=== PATIENT | male | born 1985 | race Caucasian/White ===

== ENCOUNTER 2022-01-22 06:16 | Emergency (ER) | payer OTHER ==
[2022-01-22] MEDS ORDERED: FLUORESCEIN STRIPS 1 MG STRIP LEFT EYE ONE (06:28)
[2022-01-22] MEDS ORDERED: PROPARACAINE 0.5% OPHTH DROPS 15 ML BTL LEFT EYE STA (06:28)
--- NOTE | 2022-01-22 06:33 | ED ---
Eye Problem HPI - General Chief complaint: Eye Problems Stated complaint: Eye Problem Time Seen by Provider: 01/22/22 06:24 Source: patient, RN notes reviewed, old records reviewed Mode of arrival: ambulatory Limitations: no limitations - History of Present Illness Initial comments: Well-appearing 36-year-old male presents ambulatory with complaints of pain to left eye. Patient states that he was grinding metal and when he got home he took his shirt off around 1600 yesterday and believes he got a metal fragment in his eye. He states that he did remove a piece of debris however continues to have pain. States his tetanus shot is up-to-date. No medical history. Does not wear glasses or contact lenses. MD chief complaint: eye pain, eye redness, foreign body -: hour(s) (15) Onset Description: sudden Location: left eye Eye Symptoms: burning, redness, pain, blurry vision Severity scale (1-10): 6 Consistency: constant Associated Symptoms: none Treatments Prior to Arrival: other (removed foreign body) - Related Data Patient Tetanus UTD: Yes Previous Rx's Medication Instructions Recorded Polymyxin B-Trimeth Sulf Ophth 1 drops LEFT EYE Q4H 5 Days #10 ml 01/22/22 [Polytrim Opthalmic] Allergies Allergy/AdvReac Type Severity Reaction Status Date / Time amoxicillin Allergy Anaphylaxis Verified 01/22/22 06:19 Penicillins Allergy Anaphylaxis Verified 01/22/22 06:19 Review of Systems ROS Statement: Those systems with pertinent positive or pertinent negative responses have been documented in the HPI. ROS Other: All systems not noted in ROS Statement are negative. Past Medical History Past Medical History: No Reported History History of Any Multi-Drug Resistant Organisms: None Reported Additional Past Surgical History / Comment(s): L leg tendon repair Past Psychological History: No Psychological Hx Reported Smoking Status: Current every day smoker Past Alcohol Use History: Occasional Past Drug Use History: Marijuana General Exam Limitations: no limitations General appearance: alert, in no apparent distress Head exam: Present: atraumatic Eye exam: Present: PERRL, EOMI, conjunctival injection. Absent: scleral icterus, nystagmus, periorbital swelling, periorbital tenderness Pupils: Present: normal accommodation Expanded Eyelids: Normal Inspection: Bilateral Pupils: Regular, Round: Bilateral Sclera/Conjunctival: Normal Inspection: Right, Injection: Left, Foreign Body: Left Anterior chamber: Normal Inspection: Bilateral ENT exam: Present: mucous membranes moist Neck exam: Absent: meningismus Respiratory exam: Absent: respiratory distress, accessory muscle use Cardiovascular Exam: Present: regular rate Neurological exam: Present: alert, oriented X3, normal gait Psychiatric exam: Present: normal affect, normal mood Skin exam: Present: warm, dry, normal color. Absent: cyanosis, diaphoretic Course Vital Signs 01/22/22 06:19 Temperature 98 F Pulse Rate 68 Respiratory 18 Rate Blood Pressure 149/85 O2 Sat by Pulse 99 Oximetry Procedures - Forgein Body Removal Eye Site: Left Anesthetic Used: Proparacaine Eye Exam Technique: Fragoso Lamp Foreign Body Suspected: Metal Forgein Body Removal Technique: Cotton Swab Remaining Debris: No (additional foreign body removed by Dr Marroquin) Patient Tolerated: well Medical Decision Making - Medical Decision Making Proparacaine, fluorescein dye and Wood's lamp exam revealed a small foreign body in the lower lid which was removed. No foreign body under upper lid. Negative Jeremiah sign. No hyphema or hypopyon. There was a foreign body over the pupil at 6:00 that I was unable to remove. Dr. Marroquin at bedside successful at removal. Antibiotic drops prescribed. Patient does not wear glasses or contact lenses. Tetanus shot is up-to-date. Patient was instructed to follow-up with ophthalmology today. Disposition Clinical Impression: Corneal abrasion, Foreign body of cornea Disposition: HOME SELF-CARE Condition: Good Instructions (If sedation given, give patient instructions): Corneal Abrasion (ED), Eye Foreign Body (ED) Additional Instructions: Use antibiotic drops as prescribed. Follow-up with ophthalmology today. Prescriptions: Polymyxin B-Trimeth Sulf Ophth [Polytrim Opthalmic] 1 drops LEFT EYE Q4H 5 Days #10 ml Is patient prescribed a controlled substance at d/c from ED?: No Referrals: None,Stated [Primary Care Provider] - 1-2 days Abida Purcell MD [STAFF PHYSICIAN] - 1-2 days Time of Disposition: 07:28
[2022-01-22 07:42] VITALS: BP 144/71; PULSE 77; RESP 16; TEMP 98.2
== END 2022-01-22 07:41 | disposition home or self-care (01) ==
LOC: EC 06:16
DX: T15.02XA Foreign body in cornea, left eye, initial encounter (principal); F12.90 Cannabis use, unspecified, uncomplicated; F17.200 Nicotine dependence, unspecified, uncomplicated; Z88.0 Allergy status to penicillin
CPT/HCPCS: 65222; 99283

== ENCOUNTER → 2022-12-25 | Outpatient (CLI) | payer OTHER ==
--- NOTE | 2022-12-26 08:15 | XR ---
EXAMINATION TYPE: XR ankle complete LT DATE OF EXAM: 12/25/2022 COMPARISON: NONE HISTORY: Pain FINDINGS: Three views of the ankle demonstrate the ankle mortise to be intact and symmetric. The joint spaces are preserved. The osseous structures are intact. IMPRESSION: 1. No definite acute fracture or dislocation, if symptoms persist follow-up study in 7 to 10 days wou ld be suggested.
--- NOTE | 2022-12-26 08:16 | XR ---
EXAMINATION TYPE: XR foot complete LT DATE OF EXAM: 12/25/2022 COMPARISON: NONE HISTORY: Pain TECHNIQUE: Three views are submitted. FINDINGS: The osseous structures are intact. There is no acute fracture or dislocation. Mild hypertrophic ch anges of the first tarsal.. IMPRESSION: 1. No acute fracture or dislocation. If symptoms persist, follow-up exam in 7 to 10 days could be ob tained.
--- NOTE | 2022-12-26 08:17 | XR ---
EXAMINATION TYPE: XR shoulder complete RT DATE OF EXAM: 12/25/2022 COMPARISON: NONE HISTORY: Pain TECHNIQUE: Three views are submitted. FINDINGS: The osseous structures are intact. There is no acute fracture or dislocation. The AC joint is maint ained. IMPRESSION: 1. No acute process.
== END | disposition home or self-care (01) ==
LOC: RADXRMAIN 15:50
PROVIDERS: ATTEND Family Medicine
DX: M79.605 Pain in left leg (principal); M25.511 Pain in right shoulder; M79.672 Pain in left foot

== ENCOUNTER 2024-07-23 14:45 | Emergency (ER) | payer OTHER ==
[2024-07-23 14:58] VITALS: RESP 20
--- NOTE | 2024-07-23 15:32 | ED ---
General Adult HPI - General Chief complaint: Skin/Abscess/Foreign Body Stated complaint: R Leg/Nail Puncture Time Seen by Provider: 07/23/24 15:00 Source: patient, family, RN notes reviewed Mode of arrival: ambulatory Limitations: no limitations - History of Present Illness Initial comments: 38-year-old male presents to the emergency department for nail puncture wound to his right thigh. Patient states that he was mowing the lawn when he ran over a nail. Causing the nail to come up and hit him in the thigh. He notes having multiple layers of pants on. He is unsure when he last had a tetanus vaccine. He is updated on this today. Allergic to penicillins. - Related Data Previous Rx's Medication Instructions Recorded Polymyxin B-Trimeth Sulf Ophth 1 drops LEFT EYE Q4H 5 Days #10 ml 01/22/22 [Polytrim Opthalmic] Clindamycin [Cleocin] 450 mg PO Q8HR #63 capsule 07/23/24 Allergies Allergy/AdvReac Type Severity Reaction Status Date / Time amoxicillin Allergy Anaphylaxis Verified 01/22/22 06:19 Penicillins Allergy Anaphylaxis Verified 01/22/22 06:19 Review of Systems ROS Statement: Those systems with pertinent positive or pertinent negative responses have been documented in the HPI. ROS Other: All systems not noted in ROS Statement are negative. Past Medical History Past Medical History: No Reported History History of Any Multi-Drug Resistant Organisms: None Reported Additional Past Surgical History / Comment(s): L leg tendon repair Past Psychological History: No Psychological Hx Reported Smoking Status: Current every day smoker Past Alcohol Use History: Occasional Past Drug Use History: Marijuana General Exam Limitations: no limitations General appearance: alert, in no apparent distress Head exam: Present: atraumatic, normocephalic, normal inspection Respiratory exam: Present: normal lung sounds bilaterally. Absent: respiratory distress, wheezes, rales, rhonchi, stridor Cardiovascular Exam: Present: regular rate, normal rhythm, normal heart sounds. Absent: systolic murmur, diastolic murmur, rubs, gallop, clicks Extremities exam: Present: normal inspection, full ROM, normal capillary refill. Absent: tenderness, pedal edema, joint swelling, calf tenderness Neurological exam: Present: alert, oriented X3 Psychiatric exam: Present: normal affect, normal mood Skin exam: Present: warm, dry. Absent: intact (Puncture wound to the right thigh) Course Vital Signs 07/23/24 07/23/24 14:56 16:07 Temperature 97.8 F 98 F Pulse Rate 100 97 Respiratory 20 20 Rate Blood Pressure 128/90 126/86 O2 Sat by Pulse 98 99 Oximetry Medical Decision Making - Medical Decision Making Was pt. sent in by a medical professional or institution (, PA, PAINTER ORDNANCE, urgent care, hospital, or correction...) When possible be specific @ -No Did you speak to anyone other than the patient for history (EMS, parent, family, police, friend...)? What history was obtained from this source @ -No Did you review nursing and triage notes (agree or disagree)? Why? @ -I reviewed and agree with nursing and triage notes Were old charts reviewed (outside hosp., previous admission, EMS record, old EKG, old radiological studies, urgent care reports/EKG's, correction records)? Report findings @ -No old charts were reviewed Differential Diagnosis (chest pain, altered mental status, abdominal pain women, abdominal pain men, vaginal bleeding, weakness, fever, dyspnea, syncope, headache, dizziness, GI bleed, back pain, seizure, CVA, palpatations, mental health, musculoskeletal)? @ -Differential Musculoskeletal Muscular strain, contusion, ligament sprain, fracture, arthritis, septic arthritis, bursitis, cellulitis, muscle spasm, nerve compression, DVT, arterial occlusion, herpes zoster, electrolyte abnormality, tumor.... This is not meant to be in all inclusive list EKG interpreted by me (3pts min.). @ -None X-rays interpreted by me (1pt min.). @ -None done CT interpreted by me (1pt min.). @ -None done U/S interpreted by me (1pt. min.). @ -None done What testing was considered but not performed or refused? (CT, X-rays, U/S, labs)? Why? @ -None What meds were considered but not given or refused? Why? @ -None Did you discuss the management of the patient with other professionals (professionals i.e. , [facility], PAINTER [employer]DNANCE, lab, RT, psych nurse, psychiatric social worker supervisor, director marketing analytics, teacher, chief green officer, telephonic nurse case manager)? Give summary @ -No Was smoking cessation discussed for >3mins.? @ -No Was critical care preformed (if so, how long)? @ -No Were there social determinants of health that impacted care today? How? (Homelessness, low income, unemployed, alcoholism, drug addiction, transportation, low edu. Level, literacy, decrease access to med. care, prison, rehab)? @ -No Was there de-escalation of care discussed even if they declined (Discuss DNR or withdrawal of care, Hospice)? DNR status @ -No What co-morbidities impacted this encounter? (DM, HTN, Smoking, COPD, CAD, Cancer, CVA, ARF, Chemo, Hep., AIDS, mental health diagnosis, sleep apnea, morbid obesity)? @ -None Was patient admitted / discharged? Hospital course, mention meds given and route, prescriptions, significant lab abnormalities, going to OR and other pertinent info. @ -Discharge. Patient presented the emergency department for puncture wound to the right thigh. Patient updated on tetanus vaccine. Wound cleaned. Patient started on antibiotics prophylactically. He is understanding agreeable to plan. Patient stable at time of discharge. Case discussed with Dr. Christian. Undiagnosed new problem with uncertain prognosis? @ -No Drug Therapy requiring intensive monitoring for toxicity (Heparin, Nitro, Insulin, Cardizem)? @ -No Were any procedures done? @ -No Diagnosis/symptom? @ -Puncture wound Acute, or Chronic, or Acute on Chronic? @ -Acute Uncomplicated (without systemic symptoms) or Complicated (systemic symptoms)? @ -Uncomplicated Side effects of treatment? @ -No Exacerbation, Progression, or Severe Exacerbation? @ -No Poses a threat to life or bodily function? How? (Chest pain, [place], [place], pneumonia, PE, COPD, DKA, ARF, appy, cholecystitis, CVA, Diverticulitis, Homicidal, Suicidal, threat to staff... and all critical care pts) @ -No Disposition Clinical Impression: Puncture wound of thigh Disposition: HOME SELF-CARE Condition: Stable Instructions (If sedation given, give patient instructions): Puncture Wound (ED) Additional Instructions: Please pickle pumper antibiotics and take to completion. Follow up with your primary care provider. Return to the emergency department for new or worsening symptoms. Prescriptions: Clindamycin [Cleocin] 450 mg PO Q8HR #63 capsule Is patient prescribed a controlled substance at d/c from ED?: No Referrals: Oliverio Malik MD [Primary Care Provider] - 1-2 days
[2024-07-23] MEDS: DIPH,PERTUS(ACELL)TETVAC-LF 0.5 ML VIAL IM ONE (15:35)
[2024-07-23] MEDS: CLINDAMYCIN 150 MG CAP PO STA (16:03)
[2024-07-23 16:12] VITALS: BP 126/86; PULSE 97; TEMP 98
== END 2024-07-23 16:09 | disposition home or self-care (01) ==
LOC: EC 14:45
DX: S71.131A Puncture wound without foreign body, right thigh, initial encounter (principal); F17.200 Nicotine dependence, unspecified, uncomplicated; Z88.0 Allergy status to penicillin; W45.0XXA Nail entering through skin, initial encounter
CPT/HCPCS: 90471; 90715; 99282

== ENCOUNTER 2024-07-31 23:18 | Emergency (ER) | payer OTHER ==
[2024-07-31 23:35] VITALS: BP 145/103; PULSE 52; RESP 18
--- NOTE | 2024-08-01 00:30 | ED ---
Psych HPI - General Source: police, RN notes reviewed, old records reviewed Mode of arrival: ambulatory Limitations: no limitations - History of Present Illness MD Complaint: suicidal ideation, feels depressed Associated Psychiatric Symptoms: depression, suicidal ideation History of same: Yes Quality: constant, intermittent Improves With: none Worsens With: none Context: significant life stressor Associated Symptoms: denies other symptoms Treatments Prior to Arrival: placed on mental health hold If Self Harm: admits thoughts of self harm <Fidel Jackson - Last Filed: 08/01/24 00:30> <Sanford Amezquita - Last Filed: 08/01/24 03:05> - General Chief Complaint: Psychiatric Symptoms Stated Complaint: LE Petition, Mental Health Time Seen by Provider: 08/01/24 00:00 - History of Present Illness Initial Comments: This is a 38-year-old male to the ER for evaluation patient presents today for evaluation regards to need for psychiatric evaluation patient is petitioned by PD after making suicidal statements to his (Fidel Jackson) - Related Data Previous Rx's Medication Instructions Recorded Polymyxin B-Trimeth Sulf Ophth 1 drops LEFT EYE Q4H 5 Days #10 ml 01/22/22 [Polytrim Opthalmic] Clindamycin [Cleocin] 450 mg PO Q8HR #63 capsule 07/23/24 Allergies Allergy/AdvReac Type Severity Reaction Status Date / Time amoxicillin Allergy Anaphylaxis Verified 01/22/22 06:19 Penicillins Allergy Anaphylaxis Verified 01/22/22 06:19 Review of Systems ROS Other: All systems not noted in ROS Statement are negative. <Fidel Jackson - Last Filed: 08/01/24 00:30> ROS Other: All systems not noted in ROS Statement are negative. <Sanford Amezquita - Last Filed: 08/01/24 03:05> ROS Statement: Those systems with pertinent positive or pertinent negative responses have been documented in the HPI. Past Medical History Past Medical History: No Reported History History of Any Multi-Drug Resistant Organisms: None Reported Additional Past Surgical History / Comment(s): L leg tendon repair Past Psychological History: Anxiety Smoking Status: Current every day smoker Past Alcohol Use History: None Reported Past Drug Use History: Marijuana <Fidel Jackson - Last Filed: 08/01/24 00:30> General Exam Limitations: no limitations General appearance: alert, in no apparent distress Head exam: Present: atraumatic, normocephalic, normal inspection Eye exam: Present: normal appearance, PERRL, EOMI. Absent: scleral icterus, conjunctival injection, periorbital swelling ENT exam: Present: normal exam, mucous membranes moist Neck exam: Present: normal inspection. Absent: tenderness, meningismus, lymphadenopathy Respiratory exam: Present: normal lung sounds bilaterally. Absent: respiratory distress, wheezes, rales, rhonchi, stridor Cardiovascular Exam: Present: regular rate, normal rhythm, normal heart sounds. Absent: systolic murmur, diastolic murmur, rubs, gallop, clicks GI/Abdominal exam: Present: soft, normal bowel sounds. Absent: distended, tenderness, guarding, rebound, rigid Extremities exam: Present: normal inspection, full ROM, normal capillary refill. Absent: tenderness, pedal edema, joint swelling, calf tenderness Back exam: Present: normal inspection Neurological exam: Present: alert, oriented X3, CN II-XII intact Psychiatric exam: Present: normal affect, normal mood Skin exam: Present: warm, dry, intact, normal color. Absent: rash <Fidel Jackson - Last Filed: 08/01/24 00:30> Course <Fidel Jackson - Last Filed: 08/01/24 00:30> Vital Signs 07/31/24 23:29 Pulse Rate 52 L Respiratory 18 Rate Blood Pressure 145/103 O2 Sat by Pulse 99 Oximetry - Reevaluation(s) Reevaluation #1: 08/01/24 00:30 Medical records reviewed (Fidel Jackson) Reevaluation #2: 08/01/24 00:30 Medically cleared for psychiatric evaluation (Fidel Jackson) Reevaluation #3: Differential Mental Health Depression, anxiety, bipolar, psychosis, schizophrenia, borderline personality, situational depression, adjustment disorder, behavioral disorder, brain tumor, malingering, substance abuse, encephalopathy, medication reaction, dementia, hypothyroidism, degenerative neurologic disorder, lupus.... This is not meant to be all-inclusive list (Fidel Jackson) Disposition <Fidel Jackson - Last Filed: 08/01/24 00:30> Is patient prescribed a controlled substance at d/c from ED?: No <Sanford Amezquita - Last Filed: 08/01/24 03:05> Clinical Impression: Mood disorder Disposition: HOME SELF-CARE Condition: Good Referrals: Oliverio Malik MD [Primary Care Provider] - 1-2 days
== END 2024-08-01 03:10 | disposition home or self-care (01) ==
LOC: EC 23:18
DX: F39 Unspecified mood [affective] disorder (principal); F17.200 Nicotine dependence, unspecified, uncomplicated; Z88.0 Allergy status to penicillin
CPT/HCPCS: 82075; 99284

== ENCOUNTER 2024-09-06 22:19 | Emergency (ER) | payer OTHER ==
[2024-09-06 22:25] VITALS: RESP 18
[2024-09-06] MEDS: TOPICAL SKIN ADHESIVE 1 EACH AMP TOPICAL ONE (23:01)
--- NOTE | 2024-09-06 23:32 | ED ---
General Adult HPI - General Chief complaint: Wound/Laceration Stated complaint: R Arm Laceration Time Seen by Provider: 09/06/24 22:31 Source: patient, RN notes reviewed Mode of arrival: ambulatory Limitations: no limitations - History of Present Illness Initial comments: 38-year-old male presents to the emergency department for evaluation of right forearm laceration. Patient states that he was working in the garage when he lifted his arm cutting it on a screwdriver that was sticking out of the toolbox. He notes that he is up-to-date on tetanus vaccine and had one within the past year. He denies any other injuries. - Related Data Previous Rx's Medication Instructions Recorded Polymyxin B-Trimeth Sulf Ophth 1 drops LEFT EYE Q4H 5 Days #10 ml 01/22/22 [Polytrim Opthalmic] Clindamycin [Cleocin] 450 mg PO Q8HR #63 capsule 07/23/24 Allergies Allergy/AdvReac Type Severity Reaction Status Date / Time amoxicillin Allergy Anaphylaxis Verified 09/06/24 22:25 Penicillins Allergy Anaphylaxis Verified 09/06/24 22:25 Review of Systems ROS Statement: Those systems with pertinent positive or pertinent negative responses have been documented in the HPI. ROS Other: All systems not noted in ROS Statement are negative. Past Medical History Past Medical History: No Reported History History of Any Multi-Drug Resistant Organisms: None Reported Additional Past Surgical History / Comment(s): L leg tendon repair Past Psychological History: Anxiety Smoking Status: Current every day smoker Past Alcohol Use History: None Reported Past Drug Use History: Marijuana General Exam Limitations: no limitations General appearance: alert, in no apparent distress Head exam: Present: atraumatic, normocephalic, normal inspection Eye exam: Present: normal appearance, PERRL, EOMI. Absent: scleral icterus, conjunctival injection, periorbital swelling Extremities exam: Present: full ROM, normal capillary refill, other (1 cm laceration to the right dorsal forearm). Absent: tenderness, pedal edema, joint swelling, calf tenderness Neurological exam: Present: alert, oriented X3 Psychiatric exam: Present: normal affect, normal mood Skin exam: Present: warm, dry. Absent: intact Course Vital Signs 09/06/24 09/06/24 22:22 23:55 Temperature 98 F 98.2 F Pulse Rate 104 H 79 Respiratory 18 18 Rate Blood Pressure 154/117 145/102 O2 Sat by Pulse 99 99 Oximetry Medical Decision Making - Medical Decision Making Was pt. sent in by a medical professional or institution ([facility], PHYSICIAN/ALLERGY/IMMUNOLOGY, urgent care, hospital, or usp...) When possible be specific @ -No Did you speak to anyone other than the patient for history (EMS, parent, family, police, friend...)? What history was obtained from this source @ -No Did you review nursing and triage notes (agree or disagree)? Why? @ -I reviewed and agree with nursing and triage notes Were old charts reviewed (outside hosp., previous admission, EMS record, old EKG, old radiological studies, urgent care reports/EKG's, usp records)? Report findings @ -No old charts were reviewed Differential Diagnosis (chest pain, altered mental status, abdominal pain women, abdominal pain men, vaginal bleeding, weakness, fever, dyspnea, syncope, headache, dizziness, GI bleed, back pain, seizure, CVA, palpatations, mental health, musculoskeletal)? @ -Laceration, abrasion, tetanus prophylaxis, this list is not all inclusive EKG interpreted by me (3pts min.). @ -none X-rays interpreted by me (1pt min.). @ -None done CT interpreted by me (1pt min.). @ -None done U/S interpreted by me (1pt. min.). @ -None done What testing was considered but not performed or refused? (CT, X-rays, U/S, labs)? Why? @ -None What meds were considered but not given or refused? Why? @ -None Did you discuss the management of the patient with other professionals (professionals i.e. [facility], PHYSICIAN/ALLERGY/IMMUNOLOGY, lab, RT, psych nurse, social sciences chair, sole leveler, teacher, correction officer head, director of casework department)? Give summary @ -No Was smoking cessation discussed for >3mins.? @ -No Was critical care preformed (if so, how long)? @ -No Were there social determinants of health that impacted care today? How? (Homelessness, low income, unemployed, alcoholism, drug addiction, transportation, low edu. Level, literacy, decrease access to med. care, group home, rehab)? @ -No Was there de-escalation of care discussed even if they declined (Discuss DNR or withdrawal of care, Hospice)? DNR status @ -No What co-morbidities impacted this encounter? (DM, HTN, Smoking, COPD, CAD, Cancer, CVA, ARF, Chemo, Hep., AIDS, mental health diagnosis, sleep apnea, morbid obesity)? @ -None Was patient admitted / discharged? Hospital course, mention meds given and route, prescriptions, significant lab abnormalities, going to OR and other pertinent info. @ -Discharge. Patient presented to the emergency department for right forearm laceration. He is up-to-date on tetanus vaccine. The area was cleaned and skin adhesive was applied. Patient was advised on wound care and discharge plan. Patient understanding and agreeable with plan. Patient stable at time of discharge. Case discussed with Dr. Amezquita Undiagnosed new problem with uncertain prognosis? @ -No Drug Therapy requiring intensive monitoring for toxicity (Heparin, Nitro, Insulin, Cardizem)? @ -No Were any procedures done? @ -No Diagnosis/symptom? @ -Laceration Acute, or Chronic, or Acute on Chronic? @ -Acute Uncomplicated (without systemic symptoms) or Complicated (systemic symptoms)? @ -Uncomplicated Side effects of treatment? @ -No Exacerbation, Progression, or Severe Exacerbation? @ -No Poses a threat to life or bodily function? How? (Chest pain, [place], [place], pneumonia, PE, COPD, DKA, ARF, appy, cholecystitis, CVA, Diverticulitis, Homicidal, Suicidal, threat to staff... and all critical care pts) @ -No Disposition Clinical Impression: Laceration Disposition: HOME SELF-CARE Condition: Stable Instructions (If sedation given, give patient instructions): Skin Adhesive Care (ED) Additional Instructions: Please keep wound clean and dry Be on the look out for signs of infection including redness, discharge, increased pain. Please follow-up with your primary care provider. Return to the emergency department for new or worsening symptoms. Is patient prescribed a controlled substance at d/c from ED?: No Referrals: Oilverio Malik MD [Primary Care Provider] - 1-2 days
[2024-09-06 23:55] VITALS: BP 145/102; PULSE 79; TEMP 98.2
== END 2024-09-07 00:21 | disposition home or self-care (01) ==
LOC: EC 22:19
DX: S51.811A Laceration without foreign body of right forearm, initial encounter (principal)
CPT/HCPCS: 12001; 99282